=== PATIENT | female | born 1945 | race Caucasian/White ===

== ENCOUNTER → 2017-09-04 | Outpatient (CLI) | payer MEDICARE ==
[2017-09-04 08:28] LABS: HCT 43.7 % (34.0-46.0); HGB 14.9 gm/dL (11.4-16.0); MCHC 34.2 g/dL (31.0-37.0); MCV 93.8 fL (80.0-100.0); Mean Platelet Volume 8.3; Platelet Count 155 k/uL (150-450); RBC 4.66 m/uL (3.80-5.40); RDW 13.4 % (11.5-15.5); WBC 9.2 k/uL (3.8-10.6)
[2017-09-04 08:38] LABS: ALT 22 U/L (9-52); AST 16 U/L (14-36); Albumin 3.6 g/dL (3.5-5.0); Alkaline Phosphatase 91 U/L (38-126); Anion Gap 14 mmol/L; Blood Urea Nitrogen 15 mg/dL (7-17); Calcium 8.9 mg/dL (8.4-10.2); Carbon Dioxide 25 mmol/L (22-30); Chloride 108 mmol/L (98-107); Cholesterol 123 mg/dL (<200); Glucose 111 mg/dL (74-99); HDL Cholesterol 32 mg/dL (40-60); LDL Cholesterol,Calculated 66 mg/dL (0-99); Potassium 3.6 mmol/L (3.5-5.1); Sodium 147 mmol/L (137-145); Total Bilirubin 0.8 mg/dL (0.2-1.3); Total Protein 6.6 g/dL (6.3-8.2); Triglycerides 126 mg/dL (<150)
--- NOTE | 2017-09-04 08:56 | CTL ---
EXAMINATION TYPE: CT Low Dose Lung DATE OF EXAM ORDERED: 09/04/2017 HISTORY: Personal history of tobacco abuse. Lung cancer screening CT DLP: 85.[address] CTDI: 2.5 mGy Automated exposure control for dose reduction was used. SCREENING VISIT: First COMPARISON: Reported patch dated 10/30/[address] thorax[address] No prior CT images available for compariso n. Mammography dated 04/07/2014. TECHNIQUE: Low dose computed tomography scan was performed through the chest at 1 mm thick sections a nd reconstructed images in the coronal plane at [address] DIAGNOSTIC QUALITY: Satisfactory FINDINGS: LUNG NODULES: None. LEFT: There is a 2 mm solid pulmonary nodule in a subpleural location in the left upper lobe on series 4 im age 47. There is a 2 mm solid pulmonary nodule in a perifissural location in the left upper lobe on series 4 image 83. There is a 1 to 2 mm solid pulmonary nodule in a subpleural location in the left upper lobe on series 4 image 110. There is a 1 to 2 mm solid pulmonary nodule in a subpleural location in the left upper lobe on series 4 image 116. There is a 4 mm solid pulmonary nodule in the left lower lobe on series 4 image 215. There is a 1 to 2 mm solid pulmonary nodule in a subpleural location in the left lower lobe on series 4 image 169. There is a 3 mm solid pulmonary nodule in the left upper lobe on series 4 image 135. RIGHT: There are three 1-2 mm solid pulmonary nodules in a subpleural location in the right lung apex on ser ies 4 image 37. There is a 4 mm solid perifissural lymph node within the right middle lobe on series 4 image 155. LUNGS: COPD: Severity: Mild centrilobular Fibrosis: Severity: None Lymph nodes: No adenopathy. Other findings: Subpleural reticulation is minimal and may reflect developing fibrosis although no fr ank honeycombing is seen at this time. Scattered areas of groundglass opacity are favored to represen t areas of atelectasis although pneumonitis is possible. RIGHT PLEURAL SPACE: Effusion: None Calcification: None Thickening: None Pneumothorax: None LEFT PLEURAL SPACE: Effusion: None Calcification: None Thickening: None Pneumothorax: None HEART: Heart Size: Nonenlarged Coronary calcification: Moderate Pericardial effusion: None OTHER FINDINGS: Upper abdomen: There is a prominent size of the spleen as it measures 13.3 cm in longitudinal dimensi on. Bony thorax: Partial visualization of an anterior cervical fusion device. Minimal degenerative change . Supraclavicular region: No adenopathy Other: Small hiatal hernia is seen. There is a oval 1.0 cm mass within the right breast at the 3:00 p osition corresponding to a stable mammographic finding in comparison to the prior of 04/07/2014. IMPRESSION: 1. Multiple bilateral subcentimeter pulmonary nodules corresponding to lung RADS 2-Benign appearance or behavior-nodule with a very low likelihood of becoming a clinically active cancer due to lack of s ize or growth. 2. Moderate coronary artery calcifications, marker of coronary artery disease. 3. Mild centrilobular emphysema and subpleural reticulation and may represent early fibrosis although no definitive current pulmonary fibrosis is identified. 4. Scattered groundglass opacities favored to represent atelectasis although pneumonitis possible. 5. Small hiatal hernia. 6. Prominent size of the spleen approaching criteria for splenomegaly. FOLLOW UP CT CHEST RECOMMENDATION: Continued annual screening with low dose CT in 12 [address] is [address] LUNG RAD: Lung-Rad 2 Benign Appearance or Behavior
--- NOTE | 2017-09-04 16:00 | BD ---
EXAMINATION TYPE: MG DEXA axial skeleton. DATE OF EXAM: 09/04/2017 COMPARISON: 2013 CLINICAL HISTORY: 72-year-old female disorder of bone Height: 5'5 06/06 Weight: 179 FRAX RISK QUESTIONS: Alcohol (3 or more units per day): no Family History (Parent hip fracture): yes Glucocorticoids (More than 3mos): no (Ex: prednisone, prednisolone, methylprednisolone, dexamethasone, and hydrocortisone). History of Fracture in Adulthood: no Secondary Osteoporosis: 1. Type 1 Diabetes: no 2. Hyperthyroidism: no 3. Menopause before 45: yes 4. Malnutrition: no 5. Chronic liver disease: no Rheumatoid Arthritis: no Current Tobacco Use: no RISK FACTORS HISTORY OF: History of Wrist Fracture: yes rt When: 2002 Diet low in dairy products/other sources of calcium: y Postmenopausal woman: MEDICATIONS: Thyroid Medications: Which medication: Levothyroxine How Lon years Additional Medications: cholesterol Additional History: EXAM MEASUREMENTS: Bone mineral densitometry was performed using the [employer] System. Bone mineral density as measured about the Lumbar spine is: ----- L1-L4(G/cm2): 1.242 T Score Values are as follows: ----- L2: -0.8 ----- L3: 1.9 ----- L4: 3.0 ----- L1-L4:0.5 Bone mineral density has: Increased 7.0% since study of: 04/07/2014 Bone mineral density about the R hip (g/cm2): 0.730 Bone mineral density about the L hip (g/cm2): 0.695 T Score values are as follows: -----R Neck: -2.2 -----L Neck: -2.5 -----R Total: -1.8 -----L Total: -1.9 Bone mineral density has: Decreased -2.2% since study of: 04/07/2014 IMPRESSION: Osteoporosis (T Score less than -2.5). There is increased fracture risk and therapy is usually indicated based on age. Re-Screen 1-2 years. NOTE: T-SCORE=SD OF THE YOUNG ADULT MEAN.
--- NOTE | 2017-09-05 11:39 | MM ---
Reason for exam: screening (asymptomatic). Last mammogram was performed 3 years and 5 months ago. History: Patient is postmenopausal. Took hormonal contraceptives for 4 months beginning at age 19. Physical Findings: A clinical breast exam by your physician is recommended on an annual basis and results should be correlated with mammographic findings. MG 3D Screening Mammo W/Cad Bilateral CC and MLO view(s) were taken. Prior study comparison: April 09, 2014, left breast MG work up mamm w CAD LT. April 07, 2014, bilateral MG screening mammo w CAD. The breast tissue is heterogeneously dense. This may lower the sensitivity of mammography. Benign calcifications bilaterally. No suspicious abnormality. No significant changes when compared with prior studies. ASSESSMENT: Benign, BI-RAD 2 RECOMMENDATION: Routine screening mammogram of both breasts in 1 year.
== END | disposition home or self-care (01) ==
LOC: RADCTMAIN 07:25
PROVIDERS: ATTEND Internal Medicine
DX: Z12.31 Encounter for screening mammogram for malignant neoplasm of breast (principal); J43.2 Centrilobular emphysema; I25.10 Atherosclerotic heart disease of native coronary artery without angina pectoris; R91.8 Other nonspecific abnormal finding of lung field; K44.9 Diaphragmatic hernia without obstruction or gangrene; M81.0 Age-related osteoporosis without current pathological fracture; M85.80 Other specified disorders of bone density and structure, unspecified site; Z87.891 Personal history of nicotine dependence
CPT/HCPCS: 80061; 80053; 84443; 85027; 77080; 77067; 77063; 36415; G0297

== ENCOUNTER → 2018-09-05 | Outpatient (CLI) | payer MEDICARE ==
--- NOTE | 2018-09-05 11:16 | CTL ---
EXAMINATION TYPE: CT Low Dose Lung DATE OF EXAM ORDERED: 09/05/2018 HISTORY: Subsequent. Lung cancer screening CT DLP: [address] CTDI: 2.33 mGy Automated exposure control for dose reduction was used. SCREENING VISIT: First follow-up COMPARISON: 09/04/2017 TECHNIQUE: Low dose computed tomography scan was performed through the chest at 1 mm thick sections a nd reconstructed images in the coronal plane at [address] DIAGNOSTIC QUALITY: Limited, but interpretable FINDINGS: LUNG NODULES: Present, detailed below: There is a star shaped density within the right middle lobe. Series 5 image 168. This measures 0.6 cm size. This appears to been present previously measuring 0.[address] for additional evalu ation. Previous apical nodularity on the right is not as easily appreciated on the current examination. Colon tien, findings appear stable over the interval. LUNGS: COPD: Severity: Mild. Peribronchial thickening is present compatible with chronic bronchitis. Fibrosis: Severity: None Lymph nodes: None enlarged mediastinal adenopathy is present Other findings: None RIGHT PLEURAL SPACE: Effusion: None Calcification: None Thickening: None Pneumothorax: None LEFT PLEURAL SPACE: Effusion: None Calcification: None Thickening: None Pneumothorax: None HEART: Heart Size: Normal Coronary calcification: Moderate to severe Pericardial effusion: None OTHER FINDINGS: Upper abdomen: Normal Bony thorax: Normal Supraclavicular region: Normal Other: Ascending thoracic aorta at the level the main pulmonary artery is 3.8 cm. The main pulmonary artery the bifurcation is 2.4 cm. IMPRESSION: 1. Enlarging right middle lobe nodule currently measuring 0.[address] is recommended for additiona l evaluation. FOLLOW UP CT CHEST RECOMMENDATION: PET/CT to evaluate right middle lobe nodule. CT LUNG RAD: Lung-Rad 4A Suspicious
== END ==
LOC: RADCTMAIN 08:06
PROVIDERS: ATTEND Internal Medicine
DX: R91.1 Solitary pulmonary nodule (principal); Z87.891 Personal history of nicotine dependence

== ENCOUNTER → 2018-09-15 | Outpatient (CLI) | payer MEDICARE ==
--- NOTE | 2018-09-17 06:50 | PE ---
EXAMINATION TYPE: PET CT fusion skull to thigh DATE OF EXAM: 09/15/2018 COMPARISON: 6 low-dose lung screening CT September 05, [address] September 04, 2017. HISTORY: Solitary pulmonary nodule right lung. TECHNIQUE: Following the intravenous administration of 12.93 mCi of F-18 FDG, whole body images are performed from the skull base to the midthigh. Images are reviewed on the computer in the coronal, a xial, and sagittal planes. Reconstructed rotating images are created on independent workstation and reviewed on the computer. A noncontrast CT is performed in conjunction with the PET scan. SCAN: Initial Scan FINDINGS: SKULL BASE AND NECK: No suspicious hypermetabolic uptake is present. CHEST, MEDIASTINUM, AND HILAR REGION: There is background mild to moderate underlying emphysematous c hange redemonstrated. There is stable 4 mm nodule right midlung anteriorly axial image 96 without hyp ermetabolic uptake. No suspicious hypermetabolic uptake is seen in the entire thorax.. ABDOMEN AND PELVIS: There are surgical sutures involving sigmoid colon with hypermetabolic uptake, ma x SUV is 5.36. OSSEOUS STRUCTURES: No areas of suspicious hypermetabolic uptake. OTHER CT: Thyroid gland is absent or small in size, correlate clinically. Mild to moderate calcified plaque of aorta extends into branch vessels. Enlarged main and right pulmonary artery are seen. CT findings consistent with underlying pulmonary a rtery hypertension. There is moderate to severe coronary artery calcification which is noted marked u nderlying coronary artery disease. Ascending aorta measures up to 3.8 cm in diameter. Cholecystectomy clips are present. There are several simple appearing thin-walled cysts scattered thr oughout both kidneys. There is low dense thickening to left adrenal gland consistent with benign lipi d rich adenoma. There are numerous coils ventral wall hernia repair surgery overlying the abdomen. Ut erus is surgically absent. There is moderate calcified plaque of aorta. Aorta measures up to 3.2 cm AP diameter axial image 165. The aorta measures 2.8 cm transversely axial image 170. There is multilevel facet arthropathy in the lumbar spine. IMPRESSION: No suspicious hypermetabolic uptake in the 4 mm right middle lobe nodule. No suspicious h ypermetabolic uptake in the thorax. Some hypermetabolic uptake near sutures at level of sigmoid recta l colon, correlate clinically to exclude inflammation or infection. Note is made of 3.8 cm aneurysm o f ascending aorta and 3.2 cm aneurysm of the distal abdominal aorta.
== END | disposition home or self-care (01) ==
LOC: RADPETMAIN 14:13
PROVIDERS: ATTEND Internal Medicine
DX: I71.2 Thoracic aortic aneurysm, without rupture (principal)
CPT/HCPCS: 78815; A9552

== ENCOUNTER → 2018-09-19 | Outpatient (CLI) | payer MEDICARE ==
--- NOTE | 2018-09-20 10:57 | MM ---
Reason for exam: screening (asymptomatic). Last mammogram was performed 1 year ago. History: Patient is postmenopausal and has history of colon cancer at age 72. Took hormonal contraceptives for 4 months beginning at age 19. Physical Findings: A clinical breast exam by your physician is recommended on an annual basis and results should be correlated with mammographic findings. MG 3D Screening Mammo W/Cad Bilateral CC and MLO view(s) were taken. Prior study comparison: September 04, 2017, bilateral MG 3d screening mammo w/cad. April 09, 2014, left breast MG work up mamm w CAD LT. The breast tissue is heterogeneously dense. This may lower the sensitivity of mammography. Finding #1: There is a questionable 5 mm obscured round mass in the subareolar position of the right breast on CC 19/75 and MLO 35/78. Finding #2: There are typically benign round, diffuse/scattered and linear calcifications in both breasts. New finding since September 04, 2017 and April 09, 2014. ASSESSMENT: Incomplete: need additional imaging evaluation, BI-RAD 0 RECOMMENDATION: Ultrasound of the right breast. [facility] will attempt to contact patient to return for ultrasound.
== END ==
LOC: RADMAMWWP 09:05
PROVIDERS: ATTEND Internal Medicine
DX: Z12.31 Encounter for screening mammogram for malignant neoplasm of breast (principal)
CPT/HCPCS: 77063; 77067

== ENCOUNTER → 2018-10-05 | Outpatient (CLI) | payer MEDICARE ==
--- NOTE | 2018-10-05 10:26 | USB ---
Reason for exam: additional evaluation requested from abnormal screening. History: Patient is postmenopausal and has history of colon cancer at age 72. Took hormonal contraceptives for 4 months beginning at age 19. Physical Findings: Nurse Summary: right breast 3 o'clock 1 x 1cm, movable, non-tender (nurse ts). US Breast Workup Limited RT Right limited breast ultrasound including focal area of concern, retroareolar and axilla demonstrates no cystic or solid lesion seen. Duct ectasia at the posterior nipple. These results were verbally communicated with the patient and result sheet given to the patient on 10/05/18. ASSESSMENT: Benign, BI-RAD 2 RECOMMENDATION: Return to routine screening mammogram schedule for both breasts. Manage patient on a clinical basis.
== END | disposition home or self-care (01) ==
LOC: RADUSWWP 09:25
PROVIDERS: ATTEND Internal Medicine
DX: R92.8 Other abnormal and inconclusive findings on diagnostic imaging of breast (principal)

== ENCOUNTER → 2019-12-11 | Outpatient (CLI) | payer MEDICARE ==
--- NOTE | 2019-12-11 18:39 | CT ---
EXAMINATION TYPE: CT angio chest DATE OF EXAM: 12/11/2019 COMPARISON: None HISTORY: Elevated d-dimer. CT DLP: 272.3 mGycm Automated exposure control for dose reduction was used. CONTRAST: Performed with IV Contrast, patient injected with 80 mL of Isovue 370. There are 3-D post processed images. Lung bases are clear. There is no pleural effusion. Heart size is normal. There is no pericardial eff usion. The lungs are clear of infiltrate. There is no evidence of a pulmonary mass. Thoracic aorta is intact . There is no aneurysm or dissection. There are no hilar masses. There is no mediastinal adenopathy. There is normal contrast opacification of the pulmonary arteries. There are no filling defects. Thora cic spine is intact. Bony thorax is intact. I see no bony destructive process. There are clips from c holecystectomy. IMPRESSION: Negative exam. No evidence of pulmonary embolism.
== END | disposition home or self-care (01) ==
LOC: RADCTMAIN 17:18
PROVIDERS: ATTEND Family Medicine
DX: R79.1 Abnormal coagulation profile (principal)
CPT/HCPCS: 82565; 84520; 71275; 36415; Q9967

== ENCOUNTER → 2019-12-30 | Outpatient (CLI) | payer MEDICARE ==
--- NOTE | 2019-12-30 10:29 | US ---
EXAMINATION TYPE: US duplex aorta DATE OF EXAM: 12/30/2019 COMPARISON: NONE CLINICAL HISTORY: I71.4 Abdominal aortic aneurysm. Smoker. Patient states being diagnosed with Aneury sm. EXAM MEASUREMENTS: Abdominal Aorta: Proximal: 2.6 x 2.3 cm Mid: 2.2 x 2.7 cm Distal: 1.6 x 1.9 cm Bifurcation: Right- Left- Bulging visualized at mid/distal Aorta = 3.6 x 2.3 x 2.4 cm IMPRESSION: 1. Fusiform prominence mid abdominal aorta with the greatest AP diameter 2.4 cm.
== END ==
LOC: RADUSWWP 08:24
PROVIDERS: ATTEND Family Medicine
DX: I71.4 Abdominal aortic aneurysm, without rupture (principal); I71.2 Thoracic aortic aneurysm, without rupture; F17.200 Nicotine dependence, unspecified, uncomplicated
CPT/HCPCS: 93979

== ENCOUNTER → 2020-02-03 | Outpatient (CLI) | payer MEDICARE ==
--- NOTE | 2020-02-03 17:10 | BD ---
EXAMINATION TYPE: Axial Bone Density DATE OF EXAM: 02/03/2020 COMPARISON: NONE CLINICAL HISTORY: Height: 65.5 Weight: 166.5 FRAX RISK QUESTIONS: Alcohol (3 or more units per day): no Family History (Parent hip fracture): yes mother Glucocorticoids (More than 3mos): no (Ex: prednisone, prednisolone, methylprednisolone, dexamethasone, and hydrocortisone). History of Fracture in Adulthood: yes Secondary Osteoporosis: 1. Type 1 Diabetes: no 2. Hyperthyroidism: no 3. Menopause before 45: yes 4. Malnutrition: no 5. Chronic liver disease: no Rheumatoid Arthritis: no Current Tobacco Use: yes RISK FACTORS HISTORY OF: History of Wrist Fracture: right wrist When: 54 years old Family History of Osteoporosis: no Active: sometimes Diet low in dairy products/other sources of calcium: yes Postmenopausal woman: 37 years old Lost more than 2 inches in height since high school: no MEDICATIONS: lovastatin, levothyroxine- Additional History: EXAM MEASUREMENTS: Bone mineral densitometry was performed using the [employer] System. Bone mineral density as measured about the Lumbar spine is: ----- L1-L4(G/cm2): 1.322 T Score Values are as follows: ----- L2: 1.7 ----- L3: 3.2 ----- L4: 0.3 ----- L1-L4: 1.2 Bone mineral density has: increased 2.3 % since study of: 09.04.2017 Bone mineral density about the R hip (g/cm2): 0.737 Bone mineral density about the L hip (g/cm2): 0.687 T Score values are as follows: -----R Neck: -2.2 -----L Neck: -2.5 -----R Total: -1.9 -----L Total: -2.2 Bone mineral density has: decreased -2.7 % since study of: 09.04.2017 IMPRESSION: Osteopenia (T Score between -2.5 and -1). There is slightly increased risk of fracture and the patient may be considered for treatment. Re-Screen 2-5 years. NOTE: T-SCORE=SD OF THE YOUNG ADULT MEAN.
--- NOTE | 2020-02-04 10:37 | MM ---
Reason for exam: screening (asymptomatic). Last mammogram was performed 1 year and 4 months ago. History: Patient is postmenopausal and has history of colon cancer at age 72. Took hormonal contraceptives for 4 months beginning at age 19. Physical Findings: A clinical breast exam by your physician is recommended on an annual basis and results should be correlated with mammographic findings. MG 3D Screening Mammo W/Cad Bilateral CC and MLO view(s) were taken. Prior study comparison: September 19, 2018, bilateral MG 3d screening mammo w/cad. September 04, 2017, bilateral MG 3d screening mammo w/cad. The breast tissue is heterogeneously dense. This may lower the sensitivity of mammography. There are benign appearing round, regional calcifications bilaterally. There is no discrete abnormality. ASSESSMENT: Benign, BI-RAD 2 RECOMMENDATION: Routine screening mammogram of both breasts in 1 year.
== END | disposition home or self-care (01) ==
LOC: RADBDWWP 09:10
PROVIDERS: ATTEND Family Medicine
DX: Z12.31 Encounter for screening mammogram for malignant neoplasm of breast (principal); M85.80 Other specified disorders of bone density and structure, unspecified site; Z78.0 Asymptomatic menopausal state
CPT/HCPCS: 77063; 77067; 77080

== ENCOUNTER → 2020-06-12 | Outpatient (CLI) | payer MEDICARE ==
--- NOTE | 2020-06-12 13:23 | US ---
EXAMINATION TYPE: US kidneys/renal and bladder DATE OF EXAM: 06/12/2020 COMPARISON: NONE CLINICAL HISTORY: R94.4 Abnormal results of kidney function,N18.9,E8.78. Abnormal labs EXAM MEASUREMENTS: Right Kidney: 11.3 x 4.4 x 4.8 cm Left Kidney: 11.0 x 5.5 x 5.6 cm Right Kidney: Multiple cystic appearing lesions visualized throughout kidney. Superior lateral echog enic focus= 1.2 x 0.8 cm. Lateral septated cyst= 1.8 x 2.1 x 1.9 cm. Renal sinus cystic lesion = 1. 4 x 1.0 x 1.0 cm. Largest cystic lesion superior pole = 2.x 2.1 x 1.9 cm Left Kidney: Multiple cystic appearing lesions visualized throughout kidney. Largest two measured. 1= lateral = 4.5 x 4.2 x 3.9 cm. 2= Medial= 2.6 x 2.4 x 2.3 cm. Bladder: Mildly distended, anechoic. Bilateral Jets not seen IMPRESSION: 1. Complex appearing bilateral renal cysts. Monitoring is recommended. 2. Superior pole right renal cortical calcification
[2020-06-12 14:16] LABS: HCT 43.7 % (34.0-46.0); HGB 14.5 gm/dL (11.4-16.0); MCH 32.7 pg (25.0-35.0); MCHC 33.2 g/dL (31.0-37.0); MCV 98.4 fL (80.0-100.0); Mean Platelet Volume 8.6; Platelet Count 165 k/uL (150-450); RBC 4.44 m/uL (3.80-5.40); RDW 13.8 % (11.5-15.5); WBC 9.4 k/uL (3.8-10.6)
[2020-06-12 14:30] LABS: Calcium 8.8 mg/dL (8.4-10.2); Potassium 4.2 mmol/L (3.5-5.1)
== END | disposition home or self-care (01) ==
LOC: RADUSWWP 12:31
PROVIDERS: ATTEND Family Medicine
DX: N28.1 Cyst of kidney, acquired (principal); N18.9 Chronic kidney disease, unspecified; E87.8 Other disorders of electrolyte and fluid balance, not elsewhere classified; R94.4 Abnormal results of kidney function studies
CPT/HCPCS: 76770; 80048; 85027

== ENCOUNTER → 2020-12-30 | Outpatient (CLI) | payer MEDICARE ==
--- NOTE | 2020-12-30 14:52 | US ---
EXAMINATION TYPE: US duplex aorta DATE OF EXAM: 12/30/2020 COMPARISON: US CLINICAL HISTORY: I71.9 Aortic aneurysm. Smoker, no HTN EXAM MEASUREMENTS: Abdominal Aorta: Proximal: 2.3 x 2.6cm Mid: 1.9 x 2.1cm Distal: 3.1 x 3.1cm Bifurcation: 1.5 x 1.6cm Right MERVAT; 1.6 x 1.4cm Left MERVAT Fusiform appearance to dilated distal aorta with irregular intimal wall plaque noted and plaque noted into common iliac arteries. IMPRESSION: Fusiform prominence distal abdominal aorta with an AP diameter of 3.1 cm.
== END | disposition home or self-care (01) ==
LOC: RADUSWWP 06:56
PROVIDERS: ATTEND Family Medicine
DX: I71.9 Aortic aneurysm of unspecified site, without rupture (principal)
CPT/HCPCS: 93979

== ENCOUNTER → 2022-04-15 | Outpatient (CLI) | payer MEDICARE ==
--- NOTE | 2022-04-15 11:20 | CTL ---
EXAMINATION TYPE: CT Low Dose Lung DATE OF EXAM ORDERED: 04/15/2022 HISTORY: . Lung cancer screening CT DLP: 97.[address] CTDI: 2.6 mGy Automated exposure control for dose reduction was used. SCREENING VISIT: COMPARISON: 09/05/2018 TECHNIQUE: Low dose computed tomography scan was performed through the chest at 1 mm thick sections a nd reconstructed images in multiple planes at 1 mm and [address] DIAGNOSTIC QUALITY: Satisfactory FINDINGS: Diffuse emphysematous changes are seen. There are 2 mm biapical pulmonary nodules which are retrospec tively stable from prior exam. Additional less than 5 mm subpleural nodules are also seen and appear to be stable. Intralobular septal thickening suggest a degree of chronic interstitial lung disease pate ch as pulmonary fibrosis. There is a stable 6 mm nodule within the inferior anterior segment of the r ight upper lobe unchanged from prior exam. Basilar and central bronchiectasis noted. A subpleural nod ule left lower lobe measuring 3 mm retrospectively stable. Hypertrophic and degenerative changes of the spine. Postsurgical change involving the cervical spine. Simple appearing left renal cyst noted and postcholecystectomy changes noted. Dense coronary artery calcifications seen and there is atherosclerotic change of the aorta. Maximal d imension of the aorta measures 3.8 cm. Small hiatal hernia noted. IMPRESSION: 1. COPD and findings compatible with chronic pulmonary fibrosis. 2. Multiple 6 mm or s pulmonary nodules are stable from prior exam. 3. Dense coronary artery calcification. CT LUNG RAD AND CT CHEST RECOMMENDATION: Lung-Rad 2 Benign Appearance or Behavior: Continue annual sc reening with LDCT in 12 months. S Modifier (other clinically significant findings): S
== END | disposition home or self-care (01) ==
LOC: RADCTMAIN 09:24
PROVIDERS: ATTEND Family Medicine
DX: Z12.2 Encounter for screening for malignant neoplasm of respiratory organs (principal); J44.9 Chronic obstructive pulmonary disease, unspecified; I25.10 Atherosclerotic heart disease of native coronary artery without angina pectoris; Z87.891 Personal history of nicotine dependence
CPT/HCPCS: 71271

== ENCOUNTER → 2022-08-31 | Outpatient (CLI) | payer MEDICARE ==
[2022-08-31 16:02] LABS: Chol/HDL Ratio 3.52 Ratio; LDL Cholesterol,Calculated 61.5 mg/dL (0.0-131.0)
== END | disposition home or self-care (01) ==
LOC: LABWHC1 08:34
PROVIDERS: ATTEND Internal Medicine Interventional Cardiology
DX: E78.5 Hyperlipidemia, unspecified (principal); R00.2 Palpitations
CPT/HCPCS: 36415; 80061; 84443

== ENCOUNTER 2023-09-08 16:18 | Emergency (ER) | payer MEDICARE, OTHER ==
[2023-09-08 16:50] VITALS: TEMP 97.5
[2023-09-08 17:27] LABS: Appearance,Urine Clear (Clear); Bilirubin,Urine Negative (Negative); Blood,Urine Trace (Negative); Color,Urine Colorless; Glucose,Urine (UA) Negative (Negative); Hyaline Casts,Urine 1 /lpf (0-2); Ketones,Urine Negative (Negative); Leukocyte Esterase,Urine Small (Negative); Mucus,Urine Rare /hpf; Nitrite,Urine Negative (Negative); PH, Urine 5.5 (5.0-8.0); Protein,Urine Negative (Negative); RBC,Urine 2 /hpf (0-5); Specific Gravity,Urine 1.004 (1.001-1.035); Squamous Epithelial Cell,Urine 4 /hpf (0-4); Urobilinogen,Urine <2.0 mg/dL (<2.0); WBC,Urine 2 /hpf (0-5)
[2023-09-08 17:34] LABS: Basophils % (A) 1 %; Eosinophils # (A) 0.1 k/uL (0-0.7); Eosinophils % (A) 1 %; HCT 43.2 % (34.0-46.0); HGB 14.3 gm/dL (11.4-16.0); Lymphocytes # (A) 1.5 k/uL (1.0-4.8); Lymphocytes % (A) 33 %; MCH 30.7 pg (25.0-35.0); MCV 93.1 fL (80.0-100.0); Monocytes # (A) 0.4 k/uL (0-1.0); Monocytes % (A) 8 %; Neutrophils # (A) 2.5 k/uL (1.3-7.7); Neutrophils % (A) 54 %; Platelet Count 118 k/uL (150-450); RBC 4.64 m/uL (3.80-5.40); RDW 13.9 % (11.5-15.5); WBC 4.6 k/uL (3.8-10.6)
[2023-09-08 17:40] LABS: ALT 14 U/L (4-34); AST 23 U/L (14-36); African American GFR (CKD) >90 (>60 ml/min/1.73 sqM); Albumin 3.7 g/dL (3.5-5.0); Alkaline Phosphatase 75 U/L (38-126); Anion Gap 7 mmol/L; Blood Urea Nitrogen 7 mg/dL (7-17); Calcium 8.4 mg/dL (8.4-10.2); Carbon Dioxide 25 mmol/L (22-30); Chloride 106 mmol/L (98-107); Glucose 104 mg/dL (74-99); Magnesium 1.7 mg/dL (1.6-2.3); Non-African American GFR(CKD) 85 (>60 ml/min/1.73 sqM); Potassium 3.6 mmol/L (3.5-5.1); Sodium 138 mmol/L (137-145); Total Bilirubin 1.2 mg/dL (0.2-1.3); Total Protein 6.7 g/dL (6.3-8.2)
[2023-09-08] MEDS: SODIUM CHLORIDE 0.9% 1,000 ML IV STA (17:40)
[2023-09-08] MEDS: IPRATROPIUM-ALBUTEROL 3 ML NEB INHALATION STA (17:55)
--- NOTE | 2023-09-08 18:04 | ED ---
General Adult HPI - General Chief complaint: Upper Respiratory Infection Stated complaint: Bodyaches Time Seen by Provider: 09/08/23 16:45 Source: patient, RN notes reviewed, old records reviewed Mode of arrival: ambulatory Limitations: no limitations - History of Present Illness Initial comments: Patient is a 78-year-old female with past medical history remarkable for COPD, hyperlipidemia, thyroid disorder presents emergency department complaining of cough, congestion, mild shortness of breath with exertion since last Monday. Family members have similar complaints. Denies any fevers. Presents for further evaluation at this time. - Related Data Home Medications Medication Instructions Recorded Confirmed Levothyroxine Sodium [Synthroid] 125 mcg PO DAILY 08/17/14 07/01/22 Lovastatin [Mevacor] 20 mg PO HS 08/17/14 07/01/22 Naproxen Sodium [Aleve] 375 mg PO DAILY 07/01/22 07/01/22 Previous Rx's Medication Instructions Recorded Albuterol Inhaler [Ventolin Hfa 2 puff INHALATION Q6H PRN #1 each 09/08/23 Inhaler] Azithromycin [Zithromax] 250 mg PO DAILY 4 Days #4 tab 09/08/23 predniSONE [Deltasone] 40 mg PO DAILY 5 Days #10 tab 09/08/23 Allergies Allergy/AdvReac Type Severity Reaction Status Date / Time No Known Allergies Allergy Verified 09/08/23 16:27 Review of Systems ROS Statement: Those systems with pertinent positive or pertinent negative responses have been documented in the HPI. Review of Systems: CONST: Denies fever EYES: Denies blurry vision ENT: Endorses nasal congestion C/V: Denies Chest pain RESP: Endorses shortness of breath, cough GI: Denies abdominal pain : Denies dysuria SKIN: Denies rash. MSK: Denies joint pain. NEURO: Denies headache ROS Other: All systems not noted in ROS Statement are negative. Past Medical History Past Medical History: COPD, Hyperlipidemia, Thyroid Disorder History of Any Multi-Drug Resistant Organisms: None Reported Past Surgical History: Bowel Resection, Cholecystectomy, Hernia Repair, Hysterectomy, Orthopedic Surgery, Tonsillectomy Additional Past Surgical History / Comment(s): neck surgery, Clots BLE Past Anesthesia/Blood Transfusion Reactions: No Reported Reaction Past Psychological History: No Psychological Hx Reported Smoking Status: Current some day smoker Past Alcohol Use History: None Reported Past Drug Use History: None Reported - Past Family History Mother Family Medical History: No Reported History General Exam - General Exam Comments Initial Comments: General: Appears in no acute distress. HEAD: Normal with no signs of head trauma. EYES: PERRLA, EOMI, conjunctiva normal, no discharge. ENT: Hearing grossly intact, normal oropharynx. RESPIRATORY: Mild end expiratory wheezing bilaterally. No increased work of breathing. No significant hypoxia. C/V: Regular rate and rhythm. S1 and S2 auscultated, no edema, peripheral pulses 2+ and intact throughout ABD: Abd is soft, nontender, nondistended EXT: Normal range of motion, no obvious deformity SKIN: No rashes or lesions observed on exposed skin. NEURO: Alert and oriented x 4. Limitations: no limitations Course Vital Signs 09/08/23 09/08/23 09/08/23 16:22 16:37 16:48 Temperature 97.5 F L Pulse Rate 92 84 Respiratory 20 16 20 Rate Blood Pressure 120/70 112/87 O2 Sat by Pulse 93 L 96 Oximetry 09/08/23 09/08/23 09/08/23 17:55 18:04 18:58 Temperature Pulse Rate 71 69 68 Respiratory 16 Rate Blood Pressure 130/68 O2 Sat by Pulse 96 Oximetry Medical Decision Making - Medical Decision Making Was pt. sent in by a medical professional or institution ([facility], CREW SCHEDULER, urgent care, hospital, or retirement...) When possible be specific @ -No Did you speak to anyone other than the patient for history (EMS, parent, family, police, friend...)? What history was obtained from this source @ -No Did you review nursing and triage notes (agree or disagree)? Why? @ -I reviewed and agree with nursing and triage notes Were old charts reviewed (outside hosp., previous admission, EMS record, old EKG, old radiological studies, urgent care reports/EKG's, retirement records)? Report findings @ -Old charts reviewed Differential Diagnosis (chest pain, altered mental status, abdominal pain women, abdominal pain men, vaginal bleeding, weakness, fever, dyspnea, syncope, headache, dizziness, GI bleed, back pain, seizure, CVA, palpatations, mental health, musculoskeletal)? @ -COVID, flu, pneumonia, COPD. This list is not all inclusive. EKG interpreted by me (3pts min.). @ -As above X-rays interpreted by me (1pt min.). @ -Chest x-ray shows no obvious acute cardiopulmonary process. CT interpreted by me (1pt min.). @ -None done U/S interpreted by me (1pt. min.). @ -None done What testing was considered but not performed or refused? (CT, X-rays, U/S, labs)? Why? @ -None What meds were considered but not given or refused? Why? @ -None Did you discuss the management of the patient with other professionals (professionals i.e. , PA, CREW SCHEDULER, lab, RT, psych nurse, social secretary, reducing machine operator, teacher, navigation officer, nurse case manager)? Give summary @ -No Was smoking cessation discussed for >3mins.? @ -No Was critical care preformed (if so, how long)? @ -No Were there social determinants of health that impacted care today? How? (Homelessness, low income, unemployed, alcoholism, drug addiction, transportation, low edu. Level, literacy, decrease access to med. care, fpc, rehab)? @ -No Was there de-escalation of care discussed even if they declined (Discuss DNR or withdrawal of care, Hospice)? DNR status @ -No What co-morbidities impacted this encounter? (DM, HTN, Smoking, COPD, CAD, Cancer, CVA, ARF, Chemo, Hep., AIDS, mental health diagnosis, sleep apnea, morbid obesity)? @ -COPD Was patient admitted / discharged? Hospital course, mention meds given and route, prescriptions, significant lab abnormalities, going to OR and other pertinent info. @ -Based on the patient's presentation and physical exam, presents with upper respiratory symptoms and what appears to be a COPD exacerbation. Vital signs are within acceptable limits. Will obtain infectious workup, screening EKG and basic labs. Patient will be given a breathing treatment, as well as IV fluids and IV steroids. Patient was in agreement this plan. EKG shows no signs of acute ischemia. Chest x-ray unremarkable. Patient's labs unremarkable as well except for a positive influenza A test. I updated the patient at this time. Symptoms started 5 days ago and therefore Tamiflu is not an option. Due to her COPD history we will cover for possible tracheobronchitis with azithromycin as well as prescribed prednisone and albuterol inhaler for home. She was in agreement this plan. Strict return precautions discussed. I will provide the patient with a prescription for prednisone, azithromycin, albuterol inhaler. I instructed the patient to follow up with their PCP in the next 1-3 days.. I explained that the patient should return to the emergency department if they experience any worsening symptoms. Strict return precautions were discussed with the patient. The patient expressed understanding of these instructions. I answered all questions that the patient had. The patient was discharged home in good condition with their prescriptions and follow up information. Undiagnosed new problem with uncertain prognosis? @ -No Drug Therapy requiring intensive monitoring for toxicity (Heparin, Nitro, Insulin, Cardizem)? @ -No Were any procedures done? @ -No Diagnosis/symptom? @ -COPD, influenza infection Acute, or Chronic, or Acute on Chronic? @ -Acute Uncomplicated (without systemic symptoms) or Complicated (systemic symptoms)? @ -Complicated Side effects of treatment? @ -No Exacerbation, Progression, or Severe Exacerbation? @ -No Poses a threat to life or bodily function? How? (Chest pain, [place], [place], pneumonia, PE, COPD, DKA, ARF, appy, cholecystitis, CVA, Diverticulitis, Homicidal, Suicidal, threat to staff... and all critical care pts) @ -Unlikely - Lab Data Result diagrams: 09/08/23 16:53 09/08/23 16:53 Lab Results 09/08/23 09/08/23 09/08/23 Range/Units 16:53 16:53 16:53 WBC 4.6 (3.8-10.6) k/uL RBC 4.64 (3.80-5.40) m/uL Hgb 14.3 (11.4-16.0) gm/dL Hct 43.2 (34.0-46.0) % MCV 93.1 (80.0-100.0) fL MCH 30.7 (25.0-35.0) pg MCHC 33.0 (31.0-37.0) g/dL RDW 13.9 (11.5-15.5) % Plt Count 118 L (150-450) k/uL MPV 9.0 Neutrophils % 54 % Lymphocytes % 33 % Monocytes % 8 % Eosinophils % 1 % Basophils % 1 % Neutrophils # 2.5 (1.3-7.7) k/uL Lymphocytes # 1.5 (1.0-4.8) k/uL Monocytes # 0.4 (0-1.0) k/uL Eosinophils # 0.1 (0-0.7) k/uL Basophils # 0.0 (0-0.2) k/uL Sodium 138 (137-145) mmol/L Potassium 3.6 (3.5-5.1) mmol/L Chloride 106 (98-107) mmol/L Carbon Dioxide 25 (22-30) mmol/L Anion Gap 7 mmol/L BUN 7 (7-17) mg/dL Creatinine 0.69 (0.52-1.04) mg/dL Est GFR (CKD-EPI)AfAm >90 (>60 ml/min/1.73 sqM) Est GFR (CKD-EPI)NonAf 85 (>60 ml/min/1.73 sqM) Glucose 104 H (74-99) mg/dL Calcium 8.4 (8.4-10.2) mg/dL Magnesium 1.7 (1.6-2.3) mg/dL Total Bilirubin 1.2 (0.2-1.3) mg/dL AST 23 (14-36) U/L ALT 14 (4-34) U/L Alkaline Phosphatase 75 (38-126) U/L Total Protein 6.7 (6.3-8.2) g/dL Albumin 3.7 (3.5-5.0) g/dL Urine Color Colorless Urine Appearance Clear (Clear) Urine pH 5.5 (5.0-8.0) Ur Specific [place] 1.004 (1.001-1.035) Urine Protein Negative (Negative) Urine Glucose (UA) Negative (Negative) Urine Ketones Negative (Negative) Urine Blood Trace H (Negative) Urine Nitrite Negative (Negative) Urine Bilirubin Negative (Negative) Urine Urobilinogen <2.0 (<2.0) mg/dL Ur Leukocyte Esterase Small H (Negative) Urine RBC 2 (0-5) /hpf Urine WBC 2 (0-5) /hpf Ur Squamous Epith Cells 4 (0-4) /hpf Hyaline Casts 1 (0-2) /lpf Urine Mucus Rare H (None) /hpf Influenza Type A (PCR) (Not Detectd) Influenza Type B (PCR) (Not Detectd) RSV (PCR) (Not Detectd) SARS-CoV-2 (PCR) (Not Detectd) 09/08/23 Range/Units 16:53 WBC (3.8-10.6) k/uL RBC (3.80-5.40) m/uL Hgb (11.4-16.0) gm/dL Hct (34.0-46.0) % MCV (80.0-100.0) fL MCH (25.0-35.0) pg MCHC (31.0-37.0) g/dL RDW (11.5-15.5) % Plt Count (150-450) k/uL MPV Neutrophils % % Lymphocytes % % Monocytes % % Eosinophils % % Basophils % % Neutrophils # (1.3-7.7) k/uL Lymphocytes # (1.0-4.8) k/uL Monocytes # (0-1.0) k/uL Eosinophils # (0-0.7) k/uL Basophils # (0-0.2) k/uL Sodium (137-145) mmol/L Potassium (3.5-5.1) mmol/L Chloride (98-107) mmol/L Carbon Dioxide (22-30) mmol/L Anion Gap mmol/L BUN (7-17) mg/dL Creatinine (0.52-1.04) mg/dL Est GFR (CKD-EPI)AfAm (>60 ml/min/1.73 sqM) Est GFR (CKD-EPI)NonAf (>60 ml/min/1.73 sqM) Glucose (74-99) mg/dL Calcium (8.4-10.2) mg/dL Magnesium (1.6-2.3) mg/dL Total Bilirubin (0.2-1.3) mg/dL AST (14-36) U/L ALT (4-34) U/L Alkaline Phosphatase (38-126) U/L Total Protein (6.3-8.2) g/dL Albumin (3.5-5.0) g/dL Urine Color Urine Appearance (Clear) Urine pH (5.0-8.0) Ur Specific [place] (1.001-1.035) Urine Protein (Negative) Urine Glucose (UA) (Negative) Urine Ketones (Negative) Urine Blood (Negative) Urine Nitrite (Negative) Urine Bilirubin (Negative) Urine Urobilinogen (<2.0) mg/dL Ur Leukocyte Esterase (Negative) Urine RBC (0-5) /hpf Urine WBC (0-5) /hpf Ur Squamous Epith Cells (0-4) /hpf Hyaline Casts (0-2) /lpf Urine Mucus (None) /hpf Influenza Type A (PCR) Detected A (Not Detectd) Influenza Type B (PCR) Not Detected (Not Detectd) RSV (PCR) Not Detected (Not Detectd) SARS-CoV-2 (PCR) Not Detected (Not Detectd) - EKG Data -: EKG Interpreted by Me EKG Comments: 12-lead Electrocardiogram Interpretation Note EKG was reviewed and interpreted by myself. 12-lead ECG performed at 1701 is interpreted by me as revealing normal sinus rhythm at a rate of 82 beats per minute. [place] is normal. NV interval is 112 ms, QRS duration is 71 ms, QTc is [address] segment changes. There were no obvious ST or T wave abnormalities to suggest myocardial ischemia or injury. R wave progression across the precordium was satisfactory. By my interpretation this EKG is non- diagnostic for acute ischemia. Disposition Clinical Impression: Influenza, COPD (chronic obstructive pulmonary disease) Disposition: HOME SELF-CARE Condition: Good Instructions (If sedation given, give patient instructions): Influenza (ED), COPD (Chronic Obstructive Pulmonary Disease) (ED) Prescriptions: predniSONE [Deltasone] 40 mg PO DAILY 5 Days #10 tab Albuterol Inhaler [Ventolin Hfa Inhaler] 2 puff INHALATION Q6H PRN #1 each PRN Reason: Dyspnea Azithromycin [Zithromax] 250 mg PO DAILY 4 Days #4 tab Is patient prescribed a controlled substance at d/c from ED?: No Referrals: Ceasar Perkins DO [Primary Care Provider] - 1-2 days Time of Disposition: 18:50
--- NOTE | 2023-09-08 18:04 | XR ---
EXAMINATION TYPE: XR chest 2V DATE OF EXAM: 09/08/2023 COMPARISON: 07/15/2022 HISTORY: Shortness of breath TECHNIQUE: Frontal and lateral views of the chest are obtained. FINDINGS: Scattered senescent parenchymal changes noted. Hyperinflation compatible with COPD. No evidence for infiltrate. No evidence for atelectasis. Heart size is stable. Mediastinal structures are stable and grossly unremarkable. No evidence for hilar prominence. Degenerative changes dorsal spine. IMPRESSION: 1. No evidence for acute pulmonary disease.
[2023-09-08] MEDS: AZITHROMYCIN 500 MG TAB PO STA (18:49)
[2023-09-08] MEDS: methylPREDNISolone SOD SUCCI 125 MG/2 ML VIAL IV STA (18:49)
[2023-09-08 19:15] VITALS: BP 130/68; PULSE 68; RESP 16
== END 2023-09-08 18:59 | disposition home or self-care (01) ==
LOC: EC 16:18
DX: J44.9 Chronic obstructive pulmonary disease, unspecified (principal); J10.1 Influenza due to other identified influenza virus with other respiratory manifestations; F17.200 Nicotine dependence, unspecified, uncomplicated
CPT/HCPCS: 36415; 71046; 80053; 81001; 83735; 85025; 87636; 93005; 94640; 96361; 96374; 99284

== ENCOUNTER → 2024-02-27 | Outpatient (CLI) | payer OTHER ==
--- NOTE | 2024-02-27 12:55 | XR ---
EXAMINATION TYPE: XR femur RT DATE OF EXAM: 02/27/2024 COMPARISON: None HISTORY: Leg pain TECHNIQUE: Right femur is examined in 2 projections FINDINGS: Femoral head articulates with the acetabulum. Joint space is preserved. No acute fracture o r dislocation evident. Follow up exams can be performed as clinically indicated Vascular calcification is present. No joint effusion is evident. IMPRESSION: 1. No acute osseous abnormality right femur [facility], , 02/27/2024 12:53 PM
== END | disposition home or self-care (01) ==
LOC: RADXRMAIN 10:07
PROVIDERS: ATTEND Family Medicine
DX: M79.604 Pain in right leg (principal)

== ENCOUNTER → 2024-05-27 | Outpatient (CLI) | payer OTHER ==
--- NOTE | 2024-05-27 10:22 | CTL ---
EXAMINATION TYPE: CT Low Dose Lung DATE OF EXAM ORDERED: 05/27/2024 COMPARISON: CT Low Dose Lung 04/15/2022, 09/05/2018, 09/04/2017, CTA chest 12/11/2019, PET CT 09/15/2018 CLINICAL INDICATION: Female, 78 years old with history of Z12.2 SCREENING LUNG CA F17.210 CURRENT SMO KER; [facility], current smoker 1 PPD x 63 years, Lung cancer screening, History of Smoking/tobacco use. TECHNIQUE: Low dose computed tomography scan was performed through the chest at 1 mm thick sections a nd reconstructed images in multiple planes at 1 mm and [address] DLP: 95.[address] CTDI: 2.5 mGy Automated exposure control for dose reduction was used. CT DIAGNOSTIC QUALITY: Satisfactory FINDINGS: Nodules: Couple stable pulmonary nodules in the right lung apex measuring up to 2 mm. No new or enlarging pulm onary nodules. LUNGS: COPD: Severity: Mild Fibrosis: Severity: None Lymph nodes: None Other findings: Linear scarring within the lingula. RIGHT PLEURAL SPACE: Effusion: None Calcification: None Thickening: None Pneumothorax: None LEFT PLEURAL SPACE: Effusion: None Calcification: None Thickening: None Pneumothorax: None HEART: Heart Size: Normal Coronary Calcification: Moderate Pericardial Effusion: Trace OTHER FINDINGS: Upper abdomen: Gallbladder is surgically absent. Partial visualization of exophytic right renal cyst measuring at least 3.1 cm. Partial visualization of left renal cyst measuring at least 5.3 cm. Partia l visualization of postsurgical changes of the anterior abdominal wall in the epigastric region with mesh anchors identified. Bony thorax: Partial visualization of anterior cervical fusion hardware. Supraclavicular region: None Other: Mild atherosclerotic calcification of the aorta and its branches. Stable right breast superfic ial lesion measuring up to 1.1 cm from prior exams likely representing a benign process due to stabil ity. Dystrophic calcifications within the left breast. IMPRESSION: 1. Couple of stable pulmonary nodules measuring up to 2 mm. No new or enlarging pulmonary nodules. 2. Mild COPD changes. CT LUNG RAD AND CT CHEST RECOMMENDATION: Lung-Rad 2 Benign Appearance or Behavior: Continue annual sc reening with LDCT in 12 months. S Modifier (other clinically significant findings): None [facility], Workstation: [facility], 05/27/2024 10:20 AM
== END | disposition home or self-care (01) ==
LOC: RADCTMAIN 09:22
PROVIDERS: ATTEND Internal Medicine
DX: Z12.2 Encounter for screening for malignant neoplasm of respiratory organs (principal); J44.9 Chronic obstructive pulmonary disease, unspecified; R91.8 Other nonspecific abnormal finding of lung field; F17.210 Nicotine dependence, cigarettes, uncomplicated
CPT/HCPCS: 71271

== ENCOUNTER → 2024-07-01 | Outpatient (CLI) | payer MEDICARE ==
[2024-07-01 08:58] LABS: African American GFR (CKD) 70 (>60 ml/min/1.73 sqM); Blood Urea Nitrogen 7 mg/dL (7-17); Non-African American GFR(CKD) 61 (>60 ml/min/1.73 sqM)
--- NOTE | 2024-07-01 10:04 | CT ---
EXAMINATION TYPE: CT abdomen w con CT DLP: 576 mGycm, Automated exposure control for dose reduction was used. DATE OF EXAM: 07/01/2024 9:59 AM COMPARISON: CT low-dose lung 05/27/2024, 04/15/2022, CT abdomen and pelvis 02/27/2023, PET CT 9 CLINICAL INDICATION:Female, 78 years old with history of N28.1 cyst of kidney; renal cyst TECHNIQUE: Standard CT of the abdomen following the administration of 100 cc of Isovue 300 IV contr ast material and oral contrast. Coronal and sagittal reformats were performed. FINDINGS: LOWER CHEST: Unremarkable ABDOMEN LIVER: Unremarkable GALLBLADDER AND BILE DUCTS: The gallbladder is surgically absent. No biliary ductal dilatation. PANCREAS: Unremarkable. SPLEEN: Unremarkable. ADRENAL GLANDS: Unremarkable. KIDNEYS AND URETERS: No evidence of hydronephrosis. Nonobstructive right renal cortical 1.1 cm calcul us. Additional aspect of right renal tumor or calculus. No left renal calculi. Multiple bilateral sim ple appearing renal cysts. Largest within the superior pole of the right kidney measures up to 3.1 cm . Largest within the inferior pole of the right kidney measures up to 3.0 cm. Largest cyst within the superior pole of the right kidney medially measures up to 5.5 cm. Cysts are grossly stable in size f rom prior exam. Contrast is demonstrated within both collecting systems on the delayed phase. STOMACH AND BOWEL: Stomach and duodenum are unremarkable. Enteric contrast reaches the mid small quique l. No focal bowel wall thickening. No evidence of bowel obstruction. PERITONEUM: No evidence of pneumoperitoneum or free fluid. VASCULATURE: Stable infrarenal fusiform abdominal aneurysm measuring up to 3.5 cm. Moderate atheroscl erotic calcification of the aorta and its branches. Moderate stenosis at the origin of the celiac acc ess secondary to calcified and noncalcified plaque. Severe stenosis of the origin of the SMA secondar y to calcified and noncalcified plaque. MUSCULOSKELETAL: No acute osseous abnormalities. Levoscoliotic curvature of the thoracolumbar spine. Multilevel degenerative disc disease. LYMPH NODES: No evidence for lymphadenopathy. SOFT TISSUE/ABDOMINAL WALL: Surgical changes of the anterior abdominal wall from hernia repair with m esh clips. IMPRESSION: 1. No acute abdominal process. 2. Stable multiple bilateral renal cysts. 3. Nonobstructive right renal calculi. 4. Stable infrarenal fusiform abdominal aortic aneurysm measuring up to 3.5 cm. [facility], , 07/01/2024 10:02 AM
== END | disposition home or self-care (01) ==
LOC: RADCTMAIN 08:12
PROVIDERS: ATTEND Family Medicine
DX: N28.1 Cyst of kidney, acquired (principal); N20.0 Calculus of kidney; I71.40 Abdominal aortic aneurysm, without rupture, unspecified
CPT/HCPCS: 82565; 84520; 74160; 36415; Q9967

== ENCOUNTER 2024-07-19 11:32 | Day surgery (SDC) | payer MEDICARE, OTHER ==
[2024-07-18 09:34] VITALS: BMI 26.2
[2024-07-19 12:10] VITALS: TEMP 98.6
[2024-07-19] MEDS: LACTATED RINGERS 1,000 ML IV SCH (12:10)
[2024-07-19] MEDS: IV FLUID CONTINUATION 1,000 ML IV ONE (12:10)
[2024-07-19] MEDS ORDERED: LIDOCAINE 1% INJ 10MG/ML (20 ML MDV) ONE (13:28)
[2024-07-19] MEDS ORDERED: PROPOFOL 10 MG/ML 20 ML VIAL IV ONE (13:28)
--- NOTE | 2024-07-19 13:36 | P.PCN ---
Date of Procedure: 07/19/24 Procedure(s) Performed: BRIEF HISTORY: Patient is a 79-year-old, pleasant, white female scheduled an upper endoscopy as a part evaluation of chronic cough for the last few months duration. She denies any heartburn. No dysphagia or odynophagia.. PROCEDURE PERFORMED: Esophagogastroduodenoscopy with biopsy. PREOPERATIVE DIAGNOSIS: Chronic persistent cough. IV sedation per anesthesia. PROCEDURE: After informed consent was obtained, the patient was brought into the endoscopy unit. IV sedation was administered by Anesthesia under continuous monitoring. Initially the Olympus GIF-140 video endoscope was inserted into the mouth. Esophagus intubated without any difficulty. It was gradually advanced into the stomach and duodenum and carefully examined. The bulb and the second part of the duodenum appeared normal. The scope at this time was withdrawn to the stomach, adequately insufflated with air, and upon careful examination, mucosa of the antrum, patchy areas of erythema consistent with gastritis and biopsies were done from this area. Mucosa of the body, cardia and the fundus appeared normal. The scope was then withdrawn into the esophagus. The GE junction was located at 43 cm from the incisors. Small hiatal hernia noted. The esophagus appeared normal. There were no erosions or ulcerations seen, biopsies were done from the distal esophagus and the patient tolerated the procedure well. IMPRESSION: 1. Small hiatal hernia but no evidence of esophagitis or Horta's esophagus. 2. Mild antral gastritis. RECOMMENDATIONS: The findings of this examination were discussed with the patient as well as her family. She was advised to follow-up the biopsy results.. Recommended trial of Prilosec 20 mg daily half hour before dinnertime for 6 weeks and see if this helps with the chronic cough. Follow-up in the office in 6 weeks.
[2024-07-19 14:01] VITALS: BP 132/68; PULSE 95; RESP 16
== END 2024-07-19 14:17 | disposition home or self-care (01) ==
LOC: ORWHC2ENDO 11:32
PROVIDERS: ATTEND Internal Medicine Gastroenterology
DX: K44.9 Diaphragmatic hernia without obstruction or gangrene (principal); K29.50 Unspecified chronic gastritis without bleeding; K31.A11 Gastric intestinal metaplasia without dysplasia, involving the antrum; K20.90 Esophagitis, unspecified without bleeding; K22.89 Other specified disease of esophagus; R05.3 Chronic cough; E78.5 Hyperlipidemia, unspecified; I73.9 Peripheral vascular disease, unspecified; J44.9 Chronic obstructive pulmonary disease, unspecified; F17.210 Nicotine dependence, cigarettes, uncomplicated; E07.9 Disorder of thyroid, unspecified; Z79.899 Other long term (current) drug therapy; Z79.890 Hormone replacement therapy
CPT/HCPCS: 88305; 88342; 43239; J2003; J2704